=== PATIENT | male | born 1955 | race Caucasian/White ===

== ENCOUNTER 2018-05-03 17:21 | Emergency (ER) | payer BC ==
[2018-05-03 17:29] VITALS: RESP 18; TEMP 98
--- NOTE | 2018-05-03 17:31 | ED ---
Upper Extremity HPI - General Chief Complaint: Extremity Injury, Upper Stated Complaint: left shoulder pain Time Seen by Provider: 05/03/18 17:30 Source: patient Mode of arrival: ambulatory Limitations: no limitations - History of Present Illness Initial Comments: 62-year-old male past medical history of hypertension presenting today for chief complaint of left shoulder pain that increases with range of motion. Patient states that for the past 4 days he had limited range of motion of the left shoulder secondary to pain. He states it mostly is painful to abduction. Pt denies pain at rest. He states he is able to swing the arm forward and back without difficulty. He states when he fully range his with abduction overhead he has increasing pain. Patient states he plays tennis he denies any direct injury. He states initially felt as though supple. Patient denies any chest pain, dyspnea, dyspnea on exertion, nausea, vomiting, indigestion, fever, chills , erythema or warmth of the shoulder. Patient denies any upper extremity swelling. Remaining review of systems negative, patient denies any recent back pain, abdominal pain, numbness or tingling, dysuria or hematuria, constipation or diarrhea, headaches or visual changes, or any other complaints. Upon arrival pt is pleasant and well appearing. - Related Data Allergies Allergy/AdvReac Type Severity Reaction Status Date / Time No Known Allergies Allergy Verified 05/03/18 17:24 Review of Systems ROS Statement: Those systems with pertinent positive or pertinent negative responses have been documented in the HPI. ROS Other: All systems not noted in ROS Statement are negative. Past Medical History Past Medical History: Hyperlipidemia, Hypertension History of Any Multi-Drug Resistant Organisms: None Reported Past Surgical History: No Surgical Hx Reported Past Psychological History: No Psychological Hx Reported Smoking Status: Never smoker Past Alcohol Use History: Occasional Past Drug Use History: None Reported General Exam - General Exam Comments Initial Comments: General: The patient is awake and alert, in no distress, and does not appear acutely ill. Eye: +3 mm pupils are equal, round and reactive to light, extra-ocular movements are intact. No nystagmus. There is normal conjunctiva bilaterally. No signs of icterus. Ears, nose, mouth and throat: There are moist mucous membranes and no oral lesions. Neck: The neck is supple, there is no tenderness or JVD. Cardiovascular: There is a regular rate and rhythm. No murmur, rub or gallop is appreciated. Respiratory: Lungs are clear to auscultation, respirations are non-labored, breath sounds are equal. No wheezes, stridor, rales, or rhonchi. Gastrointestinal: Soft, non-distended, non-tender abdomen without masses or organomegaly noted. There is no rebound or guarding present. No CVA tenderness. Bowel sounds are unremarkable. Musculoskeletal: Normal inspection the shoulders bilaterally. Patient is tender along the deltoid muscle. No pain or patient scapula or AC joint. Limited ROM abduction and full overhead ROM, no tenderness of slight forward flexion or hyperextension. Strength 5/5 at the elbow, right shoulder, and wrist b/l. Sensation intact of the UE equal in comparison b/l with no badge anesthesia. Radial pulses equal bilaterally 2+. fingers crossed okay finger opposition and thumbs up sign intact bilaterally. Patient is able to extend at the wrist bilaterally no evidence of her strep. Neurological: A&O x 3. CN II-XII intact, There are no obvious motor or sensory deficits. Coordination appears grossly intact. Speech is normal. Skin: Skin is warm and dry and no rashes or lesions are noted. Psychiatric: Cooperative, appropriate mood & affect, normal judgment. Limitations: no limitations Course Vital Signs 05/03/18 05/03/18 05/03/18 17:24 18:30 19:04 Temperature 98 F Pulse Rate 60 70 66 Respiratory 18 18 18 Rate Blood Pressure 180/110 180/110 166/104 O2 Sat by Pulse 99 97 97 Oximetry Medical Decision Making - Medical Decision Making 62-year-old male presenting for left shoulder pain x 4 days. Patient does play tennis. Patient has no upper extremity swelling. No recent immobilization. No history of cancer. Pt did have 5 hour flight but states he moved around during it. Pt has tenderness along deltoid, biceps insertion. Pt incrased pain only with ROM. No pain at rest. Remaining ROS (-), no history concerning for infectious process. XR (-). Pt neurovascular exam intact. Pt has elevated BP pt states he did take BP medication this morning. Pt denies any symptoms concerning for EOD. Pt requesting discharge. Patient be discharged with outpatient orthopedic surgery follow-up, and primary care follow-up for treatment of high blood pressure. And agreeable with the discharge plan as well as return parameters denied questions. Patient discharged appearing well with improvement of elevated blood pressure after initiation of Norvasc 5 mg by mouth. Mikhail discussed with attending provider Dr. Gomez prior to patient's discharge. I did review all imaging studies. Disposition Clinical Impression: Left shoulder pain Disposition: HOME SELF-CARE Condition: Good Instructions (If sedation given, give patient instructions): Shoulder Sprain ( ED), Tendinitis (ED) Additional Instructions: Please use medication as discussed. Please follow-up with orthopedic surgery in the next 2-3 days. Please return to emergency room if the symptoms increase or worsen or for any other concerns. Is patient prescribed a controlled substance at d/c from ED?: No Referrals: None,Stated [Primary Care Provider] - 1-2 days Ambrosio Patel PAC [PHYSICIAN CONVENTION SERVICES DIRECTOR] - 1-2 days Time of Disposition: 18:14
--- NOTE | 2018-05-03 18:08 | XR ---
EXAMINATION TYPE: XR shoulder complete LT DATE OF EXAM: 05/03/2018 COMPARISON: NONE HISTORY: Shoulder pain TECHNIQUE: 3 views FINDINGS: I see no fracture nor dislocation. Joint spaces are normal. There are no pathologic calcifi cations. IMPRESSION: Negative left shoulder exam.
[2018-05-03] MEDS ORDERED: amLODIPine 5 MG TAB PO STA (18:30)
[2018-05-03 19:04] VITALS: BP 166/104; PULSE 66
== END 2018-05-03 19:04 | disposition home or self-care (01) ==
LOC: EC 17:21
DX: M25.512 Pain in left shoulder (principal); I10 Essential (primary) hypertension
CPT/HCPCS: 99283